=== PATIENT | male | born 1955 | race Caucasian/White ===

== ENCOUNTER 2020-02-19 22:13 | Observation (INO) ==
[2020-02-19] MEDS: NITROGLYCERIN 0.4 MG/TAB BTL SL PRN ×3 (22:39→22:49)
--- NOTE | 2020-02-19 22:41 | ERNOTE ---
Chest Pain/Cardiac HPI Chief Complaint: Chest Pain Time Seen by Provider: 02/19/20 22:24 Source: patient, family Exam Limitations: no limitations Immunizations: IMMUNIZATION HX Immunizations Up to Date Yes History of Influenza Vaccine No Hx Pneumococcal Vaccination Yes Allergies/Adverse Reactions: Allergies propoxyphene HCl [From [place]] Allergy (Severe, Verified 02/19/20 22:22) THROAT SWELLS UP Tetracyclines Allergy (Severe, Verified 02/19/20 22:22) THROAT SWELLS UP Home Medications: HOME MEDICATIONS Albuterol Sulfate [Proair Respiclick] 2 puff IH QID PRN 03/05/18 [Last Taken Unknown] Atorvastatin Calcium [Lipitor] 80 mg PO HS 03/05/18 [Last Taken Unknown] Lisinopril [Zestril] 10 mg PO DAILY 03/05/18 [Last Taken Unknown] Metoprolol Tartrate [Lopressor] 50 mg PO Q12H 03/05/18 [Last Taken Unknown] Mometasone Furoate [Asmanex] 220 mcg IH DAILY 03/05/18 [Last Taken Unknown] Montelukast Sodium [Singulair] 10 mg PO HS 03/05/18 [Last Taken Unknown] Nitroglycerin 0.4 mg SL Q5M 03/05/18 [Last Taken Unknown] Isosorbide Mononitrate [Imdur] 30 mg PO DAILY 02/19/20 [Last Taken Unknown] Narrative: pt with chest pain today per he has been having intermittent pain for the past week. pt last cardiac appt was one year ago and is take care [facility]. pt with active chest pain at time of exam and mild diaphoresis. pt with history of DE and cardiac bypass surgery 4 years ago at the [facility]. pt took aspirin at home but not his ntg. per he has been getting relief of intermittent pain with ntg. aspirin held because pt took a total of 650mg at home prior to arrival here Timing: constant Severity/Quality: moderate Location: substernal Chest Pain Radiation: no radiation Activities at Onset: none Modifying Factors - Improves: Present: nothing Modifying Factors - Worsens: Present: other - worse on deep inspiration Nitro Today/Relief: no nitro taken today Aspirin Treatment Today: 325 mg x 1, provided at home - took 650 Associated Symptoms: Present: other - diaphoresis. Prior Chest Pain/Cardiac Workup: Reports: prior chest pain, heart attack, other - bypass Review of Systems - Review of Systems Constitutional: Present: See HPI. Absent: fever EYE: Present: no symptoms reported ENT: Present: no symptoms reported Respiratory: Present: other - pain on deep inspiration. Absent: cough Cardiology: Present: chest pain Psych: Present: no symptoms reported All Other Systems: All systems neg except as marked Medical History (Last Reviewed 02/19/20 @ 22:39 by Zaida Cruz MD) Hx of hyperlipidemia Asthma Myocardial infarction Surgical History: Surgical History (Last Reviewed 02/19/20 @ 22:39 by Zaida Cruz MD) History of orthopedic surgery History of coronary artery bypass graft History of surgery on arm Family History: Family History (Last Reviewed 02/19/20 @ 22:39 by Zaida Cruz MD) Father Heart disease Social History: (Last Reviewed 02/19/20 @ 22:39 by Zaida Cruz MD) Tobacco: Smoking Status: Never smoker Alcohol: alcohol intake: never Physical Exam - Physical Exam General Appearance: Present: alert, mild distress Head Exam: Present: normal inspection, no evidence of injury Eye Exam: Normal inspection: bilateral Ears, Nose, Throat: Present: normal ENT inspection Neck: Present: normal inspection, nontender, supple, full range of motion Respiratory: Present: no respiratory distress Cardiovascular/Chest: Present: regular rate, rhythm, normal peripheral pulses, bradycardia Gastrointestinal/Abdominal: Present: normal bowel sounds, nontender, nondistended, soft, no organomegaly, other - no pulsatile masses Back Exam: Present: normal range of motion Extremity Exam: Present: normal inspection, non-tender, normal range of motion, no edema Skin Exam: Present: normal color, diaphoresis Lymphatic Exam: Present: no adenopathy Progress - Results and Orders Patient's Lab Results:: I have reviewed the patient's lab results. - Vital Signs Patient's Vital Signs:: I have reviewed the patient's vital signs. Vital Signs: Vital Signs 02/19/20 22:17 02/19/20 22:21 02/19/20 22:24 Temperature 36.8 C Pulse Rate 61 65 61 Respiratory Rate 21 H Blood Pressure 167/85 H O2 Sat by Pulse Oximetry 100 - EKG EKG #1 EKG: NSR, ST depression, other - non specific changes EKG read: Reviewed by me - X-Ray X-Ray #1 X-Ray: chest Interpretation: Reviewed by me X-ray Comments: sternotomy wires in place otherwise no acute findings - Progress/Reassessment Chief Complaint: Chest Pain Plan - Plan Plan[facility] who accepted the pt and requested labs in the morning rounds Departure Clinical Impression: Chest pain due to CAD - Departure Disposition: Short Term Hospital Inpatient Condition: Good Instructions: Angina, [id number] Referrals: Carole Horner MD [Primary Care Provider] -
[2020-02-19 22:43] LABS: Hematocrit 42.8 % (42.0-52.0); Hemoglobin 14.3 gm/dL (13.5-18.0); Mean Cell Volume 88.4 fl (78-100); Mean Corpuscular Hemoglobin 29.5 pg (27-31); Mean Corpuscular Hgb Conc 33.4 g/dl (32-36); Mean Platelet Volume 9.8 fl (8-11.3); Neutrophil % 61.1 % (42-75.0); Platelet Count 290 K/mm3 (150-450); Red Blood Count 4.84 M/mm3 (4.7-6.0); Red Cell Distribution Width 13.8 % (11.5-14.0); White Blood Count 13.2 K/mm3 (4.0-10.5)
[2020-02-19 23:00] LABS: Albumin * 3.7 gm/dl (3.4-5.0); Anion Gap 15.1 mmol/L (6.8-13.8); BUN/Creatinine Ratio 14.3 (9.0-21.6); Bilirubin, Total 0.5 mg/dL (0.0-1.1); Ca. Corrected For Albumin 8.7 mg/dL (8.4-10.2); Calcium * 8.8 mg/dL (7.9-10.9); Carbon Dioxide 25.4 mmol/L (24-32.6); Potassium 3.5 mmol/L (3.4-4.6); Total Protein 7.3 gm/dL (6.2-8.2)
[2020-02-19 23:02] LABS: Troponin I 0.042 ng/mL (0.00-0.10)
[2020-02-20 05:59] LABS: Hematocrit 43.5 % (42.0-52.0); Mean Cell Volume 89.7 fl (78-100); Mean Corpuscular Hemoglobin 28.9 pg (27-31); Mean Corpuscular Hgb Conc 32.2 g/dl (32-36); Mean Platelet Volume 9.7 fl (8-11.3); Neutrophil # 10.7 K/mm3 (1.3-6.0); Neutrophil % 81.1 % (42-75.0); Platelet Count 261 K/mm3 (150-450); Red Blood Count 4.85 M/mm3 (4.7-6.0); Red Cell Distribution Width 13.9 % (11.5-14.0); White Blood Count 13.2 K/mm3 (4.0-10.5)
[2020-02-20 06:29] LABS: Albumin * 3.6 gm/dl (3.4-5.0); Anion Gap 11.3 mmol/L (6.8-13.8); BUN/Creatinine Ratio 12.3 (9.0-21.6); Bilirubin, Total 0.7 mg/dL (0.0-1.1); Ca. Corrected For Albumin 8.7 mg/dL (8.4-10.2); Calcium * 8.7 mg/dL (7.9-10.9); Carbon Dioxide 25.5 mmol/L (24-32.6); Potassium 3.8 mmol/L (3.4-4.6); Total Protein 7.2 gm/dL (6.2-8.2)
[2020-02-20 06:48] LABS: Troponin I 0.026 ng/mL (0.00-0.10)
[2020-02-20] MEDS ORDERED: ONDANSETRON HCL/PF 2 MG/ML VIAL IV ONE (06:51)
[2020-02-20] MEDS ORDERED: MORPHINE SULFATE 4 MG/ML SYRG IV ONE (06:51)
--- NOTE | 2020-02-20 12:20 | HPDIS ---
Chief Complaint - Chief Complaint Date of Service: 02/20/20 Time of Service: 10:30 Chief Complaint: Chest pain History of Present Illness: 64-year-old male with a past medical history of myocardial infarct, hyperlipidemia, asthma presents from home with complaints of chest pain. Patient presented to the emergency room and received was found to have normal troponin, blood pressure was elevated, nonspecific EKG changes, chest x-ray was positive negative for consolidation, mild central and lower lung peribronchial thickening no evidence of congestive heart failure. Patient was admitted for chest pain observation. In the emergency room he received 3 doses of nitroglycerin, Zofran and morphine with good resolution of his pain and improvement of his blood pressure. His symptoms improved throughout his stay and he feels good this morning. Medical History (Last Reviewed 02/20/20 @ 09:39 by Joyce Lang) Hx of hyperlipidemia Asthma Myocardial infarction Surgical History: Surgical History (Last Reviewed 02/20/20 @ 09:39 by Joyce Lang) History of orthopedic surgery History of coronary artery bypass graft History of surgery on arm Family History: Family History (Last Reviewed 02/20/20 @ 09:39 by Joyce Lang) Father Heart disease Social History: (Last Reviewed 02/20/20 @ 09:39 by Joyce Lang) Tobacco: Smoking Status: Never smoker Alcohol: alcohol intake: never Review Of Systems (GEN) - Review of Systems Generalized/Overall Review: Absent: Chills, Fever Respiratory: Absent: Shortness of Breath Cardiac: Absent: Chest Pain Abdominal: Absent: Abdominal Pain Misc: All systems neg except as marked Immunizations: IMMUNIZATION HX Immunizations Up to Date Yes History of Influenza Vaccine No Hx Pneumococcal Vaccination Yes Allergies/Adverse Reactions: Allergies Allergy/AdvReac Type Severity Reaction Status Date / Time propoxyphene HCl Allergy Severe THROAT Verified 02/20/20 09:39 [From [place]] SWELLS UP Tetracyclines Allergy Severe THROAT Verified 02/20/20 09:39 SWELLS UP Home Medications: HOME MEDICATIONS Albuterol Sulfate [Proair Respiclick] 2 puff IH QID PRN 03/05/18 [Last Taken Unknown] Atorvastatin Calcium [Lipitor] 80 mg PO HS 03/05/18 [Last Taken Unknown] Lisinopril [Zestril] 15 mg PO DAILY 03/05/18 [Last Taken Unknown] Metoprolol Tartrate [Lopressor] 50 mg PO Q12H 03/05/18 [Last Taken Unknown] Mometasone Furoate [Asmanex] 220 mcg IH DAILY 03/05/18 [Last Taken Unknown] Montelukast Sodium [Singulair] 10 mg PO HS 03/05/18 [Last Taken Unknown] Nitroglycerin 0.4 mg SL Q5M 03/05/18 [Last Taken Unknown] Isosorbide Mononitrate [Imdur] 30 mg PO DAILY 02/19/20 [Last Taken Unknown] Exam - Exam Vital Signs: Vital Signs - Last Taken Temp 36.6 C 02/20/20 10:02 Pulse 69 02/20/20 10:42 Resp 18 02/20/20 10:02 BP 138/80 02/20/20 10:02 Pulse Ox 98 02/20/20 10:02 Constitutional: Present: Alert, Cooperative, Well developed, Well nourished, No distress, Middle aged ENT Exam: Present: hearing grossly normal Eye Exam: bilateral eye: normal inspection, EOMI Neck: Present: non-tender, supple. Absent: lymphadenopathy (R), lymphadenopathy (L) Back Exam: Present: normal inspection, no CVA tenderness, no vertebral tenderness Respiratory: Present: chest non-tender, lungs clear, no accessory muscle use, No wheezing Cardiovascular/Chest: Present: normal peripheral pulses, regular rate, rhythm, no murmur Peripheral Pulses: dorsalis-pedis (R): 2+, dorsalis-pedis (L): 2+ Abdomen: Present: Normal bowel sounds, soft, nontender Extremity: Present: normal range of motion, non-tender, no pedal edema Skin Exam: Present: normal color, warm/dry Neurologic: Present: alert, normal mood/affect Appearance: Present: appropriate appearance, appropriate insight Eye contact: Present: cooperative Thoughts: Present: normal thought pattern, normal mood /affect Diagnostic Studies: Abnormal Lab Results 02/19/20 02/19/20 02/20/20 Range/Units 22:30 22:30 05:50 WBC 13.2 H (4.0-10.5) K/mm3 Immature Gran % (Auto) 0.50 H (0.001-0.429) % Immature Gran # (Auto) 0.07 H (0.000-0.0310) K/mm3 Neutrophils % (42-75.0) % Lymphocytes % (20-51) % Monocytes % 10.2 H (0.0-9) % Eosinophils % 3.3 H (0.0-3.0) % Neutrophils # 8.0 H (1.3-6.0) K/mm3 Lymphocytes # (1.5-3.5) k/mm3 Monocytes # 1.3 H (0.0-1.0) k/mm3 Anion Gap 15.1 H (6.8-13.8) mmol/L Est GFR (Non-Af Amer) 58 L (60-130) mL/min Random Glucose 152 H 120 H (70-110) mg/dL AST 341 H (0-48) U/L ALT 387 H (19-67) U/L 02/20/20 Range/Units 06:00 WBC 13.2 H (4.0-10.5) K/mm3 Immature Gran % (Auto) (0.001-0.429) % Immature Gran # (Auto) 0.05 H (0.000-0.0310) K/mm3 Neutrophils % 81.1 H (42-75.0) % Lymphocytes % 9.0 L (20-51) % Monocytes % (0.0-9) % Eosinophils % (0.0-3.0) % Neutrophils # 10.7 H (1.3-6.0) K/mm3 Lymphocytes # 1.19 L (1.5-3.5) k/mm3 Monocytes # 1.1 H (0.0-1.0) k/mm3 Anion Gap (6.8-13.8) mmol/L Est GFR (Non-Af Amer) (60-130) mL/min Random Glucose (70-110) mg/dL AST (0-48) U/L ALT (19-67) U/L Laboratory Results WBC 13.2 K/mm3 (4.0-10.5) H 02/20/20 06:00 RBC 4.85 M/mm3 (4.7-6.0) 02/20/20 06:00 Hgb 14.0 gm/dL (13.5-18.0) 02/20/20 06:00 Hct 43.5 % (42.0-52.0) 02/20/20 06:00 MCV 89.7 fl (78-100) 02/20/20 06:00 MCH 28.9 pg (27-31) 02/20/20 06:00 MCHC 32.2 g/dl (32-36) 02/20/20 06:00 RDW 13.9 % (11.5-14.0) 02/20/20 06:00 Plt Count 261 K/mm3 (150-450) 02/20/20 06:00 MPV 9.7 fl (8-11.3) 02/20/20 06:00 Immature Gran % (Auto) 0.40 % (0.001-0.429) 02/20/20 06:00 Immature Gran # (Auto) 0.05 K/mm3 (0.000-0.0310) H 02/20/20 06:00 Neutrophils % 81.1 % (42-75.0) H 02/20/20 06:00 Lymphocytes % 9.0 % (20-51) L 02/20/20 06:00 Monocytes % 8.6 % (0.0-9) 02/20/20 06:00 Eosinophils % 0.6 % (0.0-3.0) 02/20/20 06:00 Basophils % 0.3 % (0.0-1.0) 02/20/20 06:00 Nucleated RBC % 0.0 k/mm3 (0-1) 02/20/20 06:00 Neutrophils # 10.7 K/mm3 (1.3-6.0) H 02/20/20 06:00 Lymphocytes # 1.19 k/mm3 (1.5-3.5) L 02/20/20 06:00 Monocytes # 1.1 k/mm3 (0.0-1.0) H 02/20/20 06:00 Eosinophils # 0.1 k/mm3 (0.0-0.7) 02/20/20 06:00 Absolute Basophils 0.0 k/mm3 (0.0-0.1) 02/20/20 06:00 Sodium 138 mmol/L (132-142) 02/20/20 05:50 Plasma Sodium 138 mmol/L (130-142) 02/20/20 05:50 Potassium 3.8 mmol/L (3.4-4.6) 02/20/20 05:50 Chloride 105 mmol/L (97-106) 02/20/20 05:50 Carbon Dioxide 25.5 mmol/L (24-32.6) 02/20/20 05:50 Anion Gap 11.3 mmol/L (6.8-13.8) 02/20/20 05:50 BUN 15 mg/dL (6-23) 02/20/20 05:50 Creatinine 1.22 mg/dL (0.4-1.4) 02/20/20 05:50 Est GFR (Non-Af Amer) 64 mL/min (60-130) 02/20/20 05:50 BUN/Creatinine Ratio 12.3 (9.0-21.6) 02/20/20 05:50 Random Glucose 120 mg/dL (70-110) H 02/20/20 05:50 Calcium 8.7 mg/dL (7.9-10.9) 02/20/20 05:50 Calcium Adj for Albumin 8.7 mg/dL (8.4-10.2) 02/20/20 05:50 Total Bilirubin 0.7 mg/dL (0.0-1.1) 02/20/20 05:50 AST 341 U/L (0-48) H 02/20/20 05:50 ALT 387 U/L (19-67) H 02/20/20 05:50 Alkaline Phosphatase 132 U/L (50-170) 02/20/20 05:50 Troponin I 0.026 ng/mL (0.00-0.10) 02/20/20 05:50 Total Protein 7.2 gm/dL (6.2-8.2) 02/20/20 05:50 Albumin 3.6 gm/dl (3.4-5.0) 02/20/20 05:50 SARS-CoV-2 (PCR) Not detected (NotDetected) 02/20/20 02:54 Assessment/Plan - Narrative Narrative: 64-year-old male with a past medical history of myocardial infarct, hyperlipidemia, asthma presents from home with complaints of chest pain. Patient presented to the emergency room and received was found to have normal troponin, blood pressure was elevated, nonspecific EKG changes, chest x-ray was positive negative for consolidation, mild central and lower lung peribronchial thickening no evidence of congestive heart failure. Patient was admitted for chest pain observation. In the emergency room he received 3 doses of nitroglycerin, Zofran and morphine with good resolution of his pain and improvement of his blood pressure. His symptoms improved throughout his stay and he feels good this morning. He is stable to be discharged home. Plan #1 telemetry #2 resume home medications #3 discharge planning. #4 heart healthy diet. Hospital Course: 64-year-old male with a past medical history of myocardial infarct, hyperlipidemia, asthma presents from home with complaints of chest pain. Patient presented to the emergency room and received was found to have normal troponin, blood pressure was elevated, nonspecific EKG changes, chest x-ray was positive negative for consolidation, mild central and lower lung peribronchial thickening no evidence of congestive heart failure. Patient was admitted for chest pain observation. In the emergency room he received 3 doses of nitroglycerin, Zofran and morphine with good resolution of his pain and improvement of his blood pressure. His symptoms improved throughout his stay and he feels good this morning. He is stable to be discharged home. Procedures Performed: none Results and Findings: Lab Pending Results 02/19/20 22:30: WBC 13.2 H, RBC 4.84, Hgb 14.3, Hct 42.8, MCV 88.4, MCH 29.5, MCHC 33.4, RDW 13.8, Plt Count 290, MPV 9.8, Immature Gran % (Auto) 0.50 H, Immature Gran # (Auto) 0.07 H, Neutrophils % 61.1, Lymphocytes % 24.1, Monocytes % 10.2 H, Eosinophils % 3.3 H, Basophils % 0.8, Nucleated RBC % 0.0, Neutrophils # 8.0 H, Lymphocytes # 3.17, Monocytes # 1.3 H, Eosinophils # 0.4, Absolute Basophils 0.1 02/19/20 22:30: Sodium 139, Plasma Sodium 140, Potassium 3.5, Chloride 102, Carbon Dioxide 25.4, Anion Gap 15.1 H, BUN 19, Creatinine 1.33, Est GFR (Non-Af Amer) 58 L, BUN/Creatinine Ratio 14.3, Random Glucose 152 H, Calcium 8.8, Calcium Adj for Albumin 8.7, Total Bilirubin 0.5, AST 33, ALT 55, Alkaline Phosphatase 89, Troponin I 0.042, Total Protein 7.3, Albumin 3.7 02/20/20 01:23: Troponin I 0.039 02/20/20 02:54: SARS-CoV-2 (PCR) Not detected 02/20/20 05:50: Sodium 138, Plasma Sodium 138, Potassium 3.8, Chloride 105, Carbon Dioxide 25.5, Anion Gap 11.3, BUN 15, Creatinine 1.22, Est GFR (Non-Af Amer) 64, BUN/Creatinine Ratio 12.3, Random Glucose 120 H, Calcium 8.7, Calcium Adj for Albumin 8.7, Total Bilirubin 0.7, AST 341 H, ALT 387 H, Alkaline Phosphatase 132, Troponin I 0.026, Total Protein 7.2, Albumin 3.6 02/20/20 06:00: WBC 13.2 H, RBC 4.85, Hgb 14.0, Hct 43.5, MCV 89.7, MCH 28.9, MCHC 32.2, RDW 13.9, Plt Count 261, MPV 9.7, Immature Gran % (Auto) 0.40, Immature Gran # (Auto) 0.05 H, Neutrophils % 81.1 H, Lymphocytes % 9.0 L, Monocytes % 8.6, Eosinophils % 0.6, Basophils % 0.3, Nucleated RBC % 0.0, Neutrophils # 10.7 H, Lymphocytes # 1.19 L, Monocytes # 1.1 H, Eosinophils # 0.1, Absolute Basophils 0.0 Discharge Location: Home Disposition: Home self-care Condition: Good Discharge Activity: Activity as tolerated Discharge Diet: Low salt, Low fat/chol Referrals: Carole Horner MD [Primary Care Provider] - Complete Home Medications List: Complete Home Medication List: Albuterol Sulfate [Proair Respiclick] 2 puff IH QID PRN 03/05/18 Atorvastatin Calcium [Lipitor] 80 mg PO HS 03/05/18 Lisinopril [Zestril] 15 mg PO DAILY 03/05/18 Metoprolol Tartrate [Lopressor] 50 mg PO Q12H 03/05/18 Mometasone Furoate [Asmanex] 220 mcg IH DAILY 03/05/18 Montelukast Sodium [Singulair] 10 mg PO HS 03/05/18 Nitroglycerin 0.4 mg SL Q5M 03/05/18 Isosorbide Mononitrate [Imdur] 30 mg PO DAILY 02/19/20
[2020-02-20] MEDS ORDERED: FLU VACC QS2020-21(6MOS UP)/PF 60 MCG/0.5 ML SYRINGE IM ONE (13:45)
[2020-02-20 13:55] VITALS: BP 143/82
== END 2020-02-20 13:45 | disposition home or self-care (01) ==
LOC: MS 22:13 → ER 22:13 → MS 02-20 08:03
PROVIDERS: ADMIT Internal Medicine; ATTEND Internal Medicine